=== PATIENT | male | born 1955 | race Caucasian/White ===

== ENCOUNTER → 2018-01-21 | Outpatient (CLI) | payer BC ==
[2018-01-21 13:14] LABS: HCT 48.3 % (39.0-53.0); HGB 15.4 gm/dL (13.0-17.5); MCH 29.5 pg (25.0-35.0); MCHC 31.9 g/dL (31.0-37.0); MCV 92.4 fL (80.0-100.0); Mean Platelet Volume 6.9; Platelet Count 203 k/uL (150-450); RBC 5.23 m/uL (4.30-5.90); RDW 13.5 % (11.5-15.5); WBC 7.4 k/uL (3.8-10.6)
[2018-01-21 13:19] LABS: Albumin 4.1 g/dL (3.5-5.0); Potassium 4.5 mmol/L (3.5-5.1); Total Bilirubin 0.5 mg/dL (0.2-1.3)
[2018-01-21 13:32] LABS: Partial Thromboplastin Time 25.3 sec (22.0-30.0); Prothrombin Time 10.7 sec (9.0-12.0)
[2018-01-21 14:40] LABS: Appearance,Urine Clear (Clear); Bilirubin,Urine Negative (Negative); Blood,Urine Small (Negative); Color,Urine Yellow; Glucose,Urine (UA) Negative (Negative); Ketones,Urine Negative (Negative); Leukocyte Esterase,Urine Negative (Negative); Nitrite,Urine Negative (Negative); Protein,Urine Negative (Negative); RBC,Urine 2 /hpf (0-5); Specific Gravity,Urine 1.016 (1.001-1.035); Urobilinogen,Urine <2.0 mg/dL (<2.0)
== END | disposition home or self-care (01) ==
LOC: LABPAT 12:45
PROVIDERS: ATTEND Orthopaedic Surgery
DX: Z01.812 Encounter for preprocedural laboratory examination (principal)
CPT/HCPCS: 36415; 80053; 81001; 85027; 85610; 85730; 87070

== ENCOUNTER 2018-02-19 05:46 | Inpatient (IN) | payer BC ==
[2018-02-13 15:13] VITALS: BMI 37.7
[~2018-02-19 05:46] MED LIST: ACETAMINOPHEN TAB 500 MG TAB PO ONE; DEXAMETHASONE SOD PHOSPHATE 10 MG/ML 1 ML VIAL IV ONE; HYDROmorphone 0.5 MG/0.5 ML SYRINGE IVP PRN; LIDOCAINE 1% 20 ML VIAL (10MG/ML) FOR IV START INTRADERMA PRN; MELOXICAM 7.5 MG TAB PO ONE; MIDAZOLAM (PF) 2 MG/2 ML VIAL IV PRN; ONDANSETRON 4 MG/2 ML VIAL IVP ONE; SCOPOLAMINE 1.5MG/72HR PATCH TRANSDERM ONE; TRANEXAMIC ACID 1,000 MG in SODIUM CHLORIDE 0.9% 50 ML IVPB ONE
[2018-02-19] MEDS ORDERED: LIDOCAINE 1% 20 ML VIAL (10MG/ML) FOR IV START INTRADERMA ONE (06:10)
[2018-02-19] MEDS ORDERED: LACTATED RINGERS 1,000 ML IV ONE ×2 (06:26→08:09)
[2018-02-19] MEDS ORDERED: fentaNYL (PF) 50 MCG/ML 2 ML AMP IVP ONE ×2 (06:30)
[2018-02-19] MEDS ORDERED: MIDAZOLAM 2 MG/2 ML VIAL IVP ONE (06:30)
[2018-02-19] MEDS ORDERED: fentaNYL (PF) 50 MCG/ML 2 ML AMP IV ONE (06:40)
[2018-02-19] MEDS ORDERED: MIDAZOLAM 2 MG/2 ML VIAL IV ONE (06:40)
[2018-02-19] MEDS ORDERED: ceFAZolin 3,000 MG in SODIUM CHLORIDE 0.9% IRRIGATIO 3,000 ML IRRIGATION ONE (06:58)
[2018-02-19] MEDS ORDERED: NALOXONE 0.4 MG/ML 1 ML VIAL IV PRN (06:58)
[2018-02-19] MEDS ORDERED: NA PHOS,M-B/NA PHOS,DI-BA 133 ML ENEMA RECTAL PRN (06:58)
[2018-02-19] MEDS ORDERED: DIAZEPAM 5 MG TAB PO PRN (06:58)
[2018-02-19] MEDS ORDERED: hydrOXYzine PAMOATE 25 MG CAP PO PRN (06:58)
[2018-02-19] MEDS ORDERED: HYDROcodone/APAP 5-325MG 1 EACH TAB PO PRN (06:58)
[2018-02-19] MEDS ORDERED: MIDAZOLAM 2 MG/2 ML VIAL ONE (06:58)
[2018-02-19] MEDS ORDERED: BISACODYL 10 MG SUPP RECTAL PRN (06:58)
[2018-02-19] MEDS ORDERED: HYDROmorphone 0.5 MG/0.5 ML SYRINGE IVP PRN ×2 (06:58)
[2018-02-19] MEDS ORDERED: ePHEDrine SULFATE/0.9% NACL/PF 50 MG/5 ML SYRINGE IV ONE (06:58)
[2018-02-19] MEDS ORDERED: ONDANSETRON 4 MG/2 ML VIAL IVP PRN (06:58)
[2018-02-19] MEDS ORDERED: GLYCOPYRROLATE 0.2 MG/ML 2 ML VIAL ONE (06:58)
[2018-02-19] MEDS ORDERED: MAGNESIUM HYDROXIDE 2,400 MG/10 ML CUP PO PRN (06:58)
[2018-02-19] MEDS ORDERED: HYDROmorphone 1 MG/ML 1 ML SYRINGE IVP PRN (06:58)
[2018-02-19] MEDS ORDERED: KETAMINE 10 MG/ML 20 ML VIAL ONE (06:58)
[2018-02-19] MEDS ORDERED: PROPOFOL 10 MG/ML 20 ML VIAL IV ONE (06:58)
[2018-02-19] MEDS: ROPIVACAINE 246.25 MG, EPINEPHrine 0.5 MG, KETOROLAC 30 MG, cloNIDine HCL/PF 80 MCG, WA... MISCELLANE ONE ×10 (07:28→08:17)
--- NOTE | 2018-02-19 08:35 | P.OP ---
Date of Procedure: 02/19/18 Preoperative Diagnosis: Severe osteoarthritis right knee Postoperative Diagnosis: Severe osteoarthritis right knee Procedure(s) Performed: Right total knee arthroplasty Implants: [employer] Journey II CR Oxinium cruciate retaining femoral component size 8, right [employer] Journey right nonporous tibial baseplate size 8 [employer] Journey II, XLPE Deep Dished articular insert, size 9 mm, Size 7- 8 right [employer] Journey BCS resurfacing oval patellar component, 35 mm All components were cemented using Palacos R bone cement.. The articulation is Oxinium on polyethylene. Anesthesia: spinal Surgeon: Doc Gil Brewery Pumper #1: Estela Zhang Estimated Blood Loss (ml): 25 Pathology: other Condition: stable Disposition: PACU Indications for Procedure: After failure of conservative treatment we discussed the surgical and nonsurgical treatment options at length. Patient wishes to proceed with a total knee arthroplasty. Complications specific to this procedure were discussed at length, including but not limited to infection, bleeding, stiffness , and nerve injury. Patient is aware of all these complications and informed consent was obtained Operative Findings: The operative findings are consistent with severe osteoarthritis of the right knee with a valgus deformity. Description of Procedure: Patient was seen in the preoperative area consent was reviewed and operative site was marked with a skin marker. An adductor canal pain catheter was placed by anesthesia in the preoperative area. Patient was then brought to the operating room and given preoperative antibiotics intravenously. A spinal anesthetic was administered by the anesthesia department. A tourniquet was placed on the upper thigh and the lower extremity was prepped and draped in usual sterile fashion. A gram of transexamic acid was given. A universal timeout was then performed which confirmed the patient's name, surgical site, ALLERGIES, and consent. The lower extremity was then exsanguinated and tourniquet was inflated to 250 mmHg. A standard and anterior midline approach to the knee was performed. The skin and subcutaneous tissue was dissected down to the patellar tendon. A medial parapatellar arthrotomy was then performed. The knee was then extended, the patellar was everted, and the knee was again flexed. Anterior horns of both menisci were excised, and a release was performed to the posterior medial aspect of the knee. On gross visual inspection, there was complete loss of articular cartilage in the medial and patellofemoral joint spaces. There was also significant cartilage damage in the lateral compartment. There were multiple periarticular osteophytes which were then removed with a Ronguer. The femoral canal was then opened with the appropriate drill, and the intramedullary femoral cutting guide was then placed and set for 5 of valgus. The distal femoral cutting block was then pinned in place, and the distal femur was then cut. The cutting block was then removed and the cut was checked for flatness. Next, the sizing guide was then placed and set for 3 external rotation based off of the epicondylar axis and Whitesides line. After the femur was sized, the appropriate 4-in-1 cutting block was then pinned in place. The anterior condyles were cut without notching. The posterior and chamfer cuts were performed while protecting the collateral ligaments. The cutting block was then removed, and the femoral canal was plugged with autologous bone. Attention was then directed to the tibia. The remaining ACL was removed with a Ronguer, and the tibia was then gently subluxed forward with a large bent knee retractor. Any remaining menisci was excised. The posterior lateral corner was cauterized in order to cauterize the lateral geniculate artery. The extra medullary tibial cutting guide was then placed, set for the appropriate rotation , slope, and depth of resection. The proximal tibia cutting guide was then pinned in place. Proximal tibia was then cut and sized. Next trials were then placed with the appropriate-sized insert. The knee was able to fully extend and flex to 130 and was stable throughout all range of motion. The knee was then extended, patella everted. Patella was then measured, and then using an osteotomy guide, the patella was cut at the appropriate level. The patella was then measured and drilled and the patella trial was then placed. The knee was then taken through range of motion with the patella trial and the patella tracked normally. The knee was then extended patella trial was then removed and the patella was everted. Knee was then flexed and lug holes were drilled through the femoral trial and the femoral trial was then removed. The tibial was then exposed, and the tibial broach guide was then pinned in place after it was set for the appropriate rotation to allow for the most coverage without overhang. The tibia was then reamed and broached. The cut surfaces of bone were then irrigated with pulsatile lavage. The posterior structures were injected with the ropivacaine solution. The knee was also irrigated with Irrisept solution. The components were then opened, the cement was mixed, and the components were then cemented in place. The cement was allowed to harden with the knee in full extension. While the cement was hardening, the remaining soft tissues were then injected with a ropivacaine solution, which consisted of 246.25 mg of ropivacaine, 0.5 mg of epinephrine, 30 mg of Toradol, 80 g of clonidine, and 48.45 mL of sterile water, for a total of 100 mL of fluid injected. After the cemented hardened. The tourniquet was released, and hemostasis was obtained. A second gram of transexamic acid was given. The knee was again irrigated. The knee was again taken through range of motion and found to be stable throughout all range of motion of 0-130 , and the patella tracked normally. The fascia was then closed with #2 strata fix suture. The subcutaneous tissue was closed with 3-0 Vicryl and 3-0 strata fix. Dermabond glue was used for the skin and placed with the knee in flexion. The patient was placed in a sterile silver dressing. Patient was then transferred to recovery room in stable condition. The resident assistant cna GAURAV Cervantes was required due the complexity surgery and the need for a skilled pharmacy technician assistant. She assisted in positioning, draping, retraction, and closure of the wound.
[2018-02-19] MEDS ORDERED: ROPIVACAINE 1,100 MG, SODIUM CHLORIDE 0.9% 500 ML 330 ML MISCELLANE PRN ×2 (09:01)
--- NOTE | 2018-02-19 09:27 | XR ---
EXAMINATION TYPE: XR knee limited RT DATE OF EXAM: 02/19/2018 CLINICAL HISTORY: Right knee pain and arthritis status post total knee replacement. TECHNIQUE: Portable AP and crosstable lateral views of the right knee are obtained immediately posto peratively. COMPARISON: None FINDINGS: Metallic hardware from total right knee arthroplasty is seen and appears satisfactory in a lignment and position. There is evidence of recent surgery with diffuse subcutaneous gas and soft ti ssue swelling noted. IMPRESSION: METALLIC HARDWARE FROM TOTAL RIGHT KNEE ARTHROPLASTY IS SATISFACTORY IN ALIGNMENT.
--- NOTE | 2018-02-19 09:29 | P.ONQ ---
Anesthesiology Proc Note - PNB - Peripheral Nerve Block Performed Right Adductor Canal Infusion Time Out Performed: Yes Procedure Start Time: 06:28 Indication: Acute Post-Operative Pain, Analgesia Specifically requested for management of pain by DrCj: Doc Gil Sedation Type: Sedate with meaningful contact maintained Preparation: Sterile Prep Position: Supine Catheter Depth at Skin (cm): 8 Catheter: Indwelling Needle Types: Other (see comment) (pajunk) Needle Size: 100mm (4") Needle Gauge: 18 Technique: Ultrasound Injectate: 0.5% Ropivacaine (see comment for volume) (20cc) Blood Aspirated: No Pain Paresthesia on Injection Noted: No Resistance on Injection: Normal Events: Uneventful and Well Tolerated
[2018-02-19] MEDS: LACTATED RINGERS 1,000 ML IV SCH (11:36)
[2018-02-19] MEDS: SODIUM CHLORIDE 0.9% 1,000 ML IV SCH ×2 (11:37→20:41)
--- NOTE | 2018-02-19 16:36 | CONS ---
CONSULTATION DATE OF CONSULTATION: 02/19/2018 REASON FOR CONSULTATION: Medical management requested by Dr. Gil. CONSULTATION: This is a very pleasant 62-year-old patient of Dr. Barton. Patient has undergone right total knee arthroplasty. Post procedure some pain is present. No nausea or vomiting. No chest pain. No shortness of breath. Denies any cardiac history. Patient's arthritis has been getting worse. The patient was also having some arthritic pain in the right ankle. Pain was worse with activity, better with rest. He finally decided to proceed with the surgery. Patient otherwise is in good health. REVIEW OF SYSTEMS: CONSTITUTIONAL: None. HEENT: None. RESPIRATORY: None. CARDIOVASCULAR: None. GASTROINTESTINAL: None. GENITOURINARY: None. MUSCULOSKELETAL: As above. DERMATOLOGICAL: None. HEMATOLOGICAL: None. LYMPHATICS: None. PSYCHIATRY: None. NEUROLOGICAL: None. PAST MEDICAL HISTORY: 1. Osteoarthritis. 2. Hypercholesterolemia. PAST SURGICAL HISTORY: Right knee surgery. 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 . Does not smoke or drink alcohol. FAMILY HISTORY: Cancer. HOME MEDICATIONS: Advil. ALLERGIES: NONE. PHYSICAL EXAMINATION: On examination, temperature 98.4, pulse 89, respiration 12, blood pressure 142/72, pulse ox 95% on room air. GENERAL APPEARANCE: Well built; BMI 37.7. Sitting up, comfortable. EYES: Pupils equal. Conjunctivae normal. HEENT: External appearance of nose and ears normal. Oral cavity normal. NECK: JVD not raised. Mass not palpable. RESPIRATORY: Effort normal. Lungs are clear. CARDIOVASCULAR: First and second sounds normal. No edema. ABDOMEN: Soft, non-tender. Liver and spleen not palpable. LYMPHATIC: No lymph node palpable in neck or axillae. PSYCHIATRY: Alert and oriented x3. Mood and affect normal. MUSCULOSKELETAL: Dressing over the right knee. INVESTIGATIONS: Blood work from 01/21/2018 shows a white count of 7.4, hemoglobin 15.4, potassium 4.5. BUN and creatinine are normal. ASSESSMENT: 1. Right total knee arthroplasty. 2. Obesity; body mass index 37.7. 3. Possible arthritis of the right ankle. 4. Primary osteoarthritis. 5. Hypercholesterolemia; not taking any medications. PLAN: Patient is stable post procedure. He is on aspirin for DVT prophylaxis. Pain control is in place. Getting IV fluids. Care was discussed with the patient and his at the bedside. Questions were answered. Patient should follow up with his doctor for weight loss measures. Patient also has been told he has high cholesterol. He has been trying to lose weight for the same. Currently he is not taking any medications. I told him to consider taking medication until his weight actually comes down. All of his questions were answered Thank you, Dr. Gil. ERIK / JAC: [id number] /
[2018-02-19 20:24] VITALS: RESP 16; TEMP 98.3
[2018-02-19] MEDS: ASPIRIN 325 MG TAB PO SCH (20:32)
[2018-02-19] MEDS ORDERED: SENNOSIDES-DOCUSATE SODIUM 1 EACH TAB PO SCH (21:00)
[2018-02-20] MEDS: LACTATED RINGERS 1,000 ML IV SCH (01:23)
[2018-02-20] MEDS: HYDROcodone/APAP 5-325MG 1 EACH TAB PO PRN ×2 (05:14→12:06)
--- NOTE | 2018-02-20 06:56 | P.PN ---
Progress Note - Text Progress Note Date: 02/20/18 Postoperative day # 1 status post right total knee arthroplasty, under spinal anesthesia, and adductor canal catheter placed for postoperative analgesia, currently at ropivacaine 0.2% 8 mL per hour and continuous infusion, visual analogue scale is 4/10, patient using oral pain medication for breakthrough pain. Assessment and plan= Acute postoperative pain, adductor canal catheter for pain control, we'll continue the same management.
[2018-02-20 08:07] VITALS: BP 116/71; PULSE 83
[2018-02-20 08:39] LABS: Basophils % (A) 0 %; Eosinophils % (A) 0 %; HCT 39.8 % (39.0-53.0); HGB 13.2 gm/dL (13.0-17.5); Lymphocytes # (A) 1.4 k/uL (1.0-4.8); Lymphocytes % (A) 18 %; MCH 30.6 pg (25.0-35.0); MCHC 33.1 g/dL (31.0-37.0); MCV 92.6 fL (80.0-100.0); Mean Platelet Volume 7.6; Monocytes # (A) 0.6 k/uL (0-1.0); Monocytes % (A) 7 %; Neutrophils # (A) 5.7 k/uL (1.3-7.7); Neutrophils % (A) 74 %; Platelet Count 169 k/uL (150-450); RDW 13.6 % (11.5-15.5); WBC 7.7 k/uL (3.8-10.6)
--- NOTE | 2018-02-20 08:59 | P.DS ---
Providers Date of admission: 02/19/18 05:46 Expected date of discharge: 02/20/18 Attending physician: Doc Gil Consults: 02/19/18 06:58 Consult Physician Routine Consulting Provider: Anthony Barton Consult Reason/Comments: medical management Do you want consulting provider notified?: Yes 02/19/18 10:56 Consult Physician Routine Consulting Provider: Aries Townsend Consult Reason/Comments: Medical Mangement Do you want consulting provider notified?: Yes Primary care physician: Anthony Barton - Discharge Diagnosis(es) (1) Primary osteoarthritis of right knee Current Visit: Yes Status: Acute (2) S/P total knee arthroplasty Current Visit: Yes Status: Acute Hospital Course: This is a 62-year-old female with known history of degenerative arthritis of the right knee. The patient presents for evaluation. After discussion and consideration patient elects to proceed with total knee arthroplasty. The patient is seen preoperatively by Dr. Gil and medically cleared for surgery by their primary care physician. Patient is admitted to [facility] on 02/19/2018 for total knee arthroplasty. The procedures performed without complication or sequelae. The patient is doing well postoperatively. Labs and vital signs are stable on day of discharge. On day of discharge patient's knee incision is healing well. There is minimal erythema. There is no drainage noted at this time. There is minimal soft tissue swelling to the knee. Patient has full foot and ankle motion without difficulty or pain. Neurovascular status to the right lower extremity is intact. Patient is discharged home in good condition. Please see med rec for accurate list of home medications. Plan - Discharge Summary Discharge Rx Participant: Yes New Discharge Prescriptions: New HYDROcodone/APAP 5-325MG [Arcadia 5-325] 1 - 2 tab PO Q4-6H PRN #84 tab PRN Reason: Pain Sennosides [Senokot] 1 tab PO BID #60 tablet Aspirin 325 mg PO BID #60 tab No Action Ibuprofen [Advil] 200 - 400 mg PO Q6HR PRN PRN Reason: Pain Discharge Medication List Ibuprofen [Advil] 200 - 400 mg PO Q6HR PRN 02/13/18 [History] Aspirin 325 mg PO BID #60 tab 02/20/18 [Rx] HYDROcodone/APAP 5-325MG [Arcadia 5-325] 1 - 2 tab PO Q4-6H PRN #84 tab 01/16/19 [ Rx] Sennosides [Senokot] 1 tab PO BID #60 tablet 02/20/18 [Rx] Follow up Appointment(s)/Referral(s): Doc Gil DO [Doctor of Osteopathic Medicine] - 2 Weeks Ambulatory/Diagnostic Orders: Continuous Passive Motion (CPM) Machine [DME.AMB1] Time Frame: 3 Weeks, Location : None Selected Activity/Diet/Wound Care/Special Instructions: Weightbearing as tolerated with a walker. CPM 5-6h daily. Leave dressing intact. May be removed by home care nurse in 10 days. May shower with dressing on. Please follow up with [facility] and call with any questions or concerns, . Discharge Disposition: HOME WITH HOME HEALTH SERVICES
[2018-02-20] MEDS ORDERED: MELOXICAM 7.5 MG TAB PO SCH (09:00)
[2018-02-20] MEDS: ASPIRIN 325 MG TAB PO SCH (09:27)
== END 2018-02-20 12:21 | disposition home health service (06) | DRG 470 ==
LOC: 2ORWHC 05:46 → 4SSUR 10:51
PROVIDERS: ADMIT Orthopaedic Surgery; ATTEND Orthopaedic Surgery
PROC: 0SRC069 Replacement of Right Knee Joint with Oxidized Zirconium on Polyethylene Synthetic Substitute, Cemented, Open Approach (ICD-10-PCS; principal; 2018-02-19 07:00)
DX: M17.11 Unilateral primary osteoarthritis, right knee (principal); E66.9 Obesity, unspecified; E78.00 Pure hypercholesterolemia, unspecified; M21.00 Valgus deformity, not elsewhere classified, unspecified site; M19.071 Primary osteoarthritis, right ankle and foot; H91.90 Unspecified hearing loss, unspecified ear; Z68.37 Body mass index [BMI] 37.0-37.9, adult; Z80.9 Family history of malignant neoplasm, unspecified
CPT/HCPCS: 85025; 88300

== ENCOUNTER 2021-01-21 12:16 | Inpatient (IN) | payer BC ==
--- NOTE | 2021-01-21 15:41 | ED ---
General Adult HPI - General Chief complaint: Extremity Problem,Nontraumatic Stated complaint: Poss blood clot/sent by pcp Time Seen by Provider: 01/21/21 15:33 Source: patient Mode of arrival: ambulatory Limitations: no limitations - History of Present Illness Initial comments: Patient presents to the ED with his for evaluation. Patient reports having abdominal distention, bilateral lower extremity edema and dyspnea for the past week or so. Patient states that he had a cough and congestion when his symptoms began, but his cough and congestion have since resolved. Patient states that he saw his primary care provider for these symptoms yesterday, and he states that he had a negative Covid test done at that time. Patient states that he was called by his PCP today and told to come to the ER to be ruled out for "blood clots" given that he had an elevated d-dimer level. Patient is noted to be in atrial fibrillation on the collections associate on arrival to the ED. Patient denies having any palpitations, and he denies history of atrial fibrillation. Patient denies having any pain, fever or chills, headache, focal numbness/weakness/neuro deficit, chest pain or pressure, hemoptysis, dizziness, syncope, abdominal pain, nausea/vomiting/diarrhea, constipation, bloody or melanotic stool, dysuria or urinary symptoms, decreased urine output, leg or calf pain, or any other symptoms or complaints. - Related Data Home Medications Medication Instructions Recorded Confirmed No Known Home Medications 01/21/21 01/21/21 Allergies Allergy/AdvReac Type Severity Reaction Status Date / Time No Known Allergies Allergy Verified 01/21/21 16:53 Review of Systems ROS Statement: Those systems with pertinent positive or pertinent negative responses have been documented in the HPI. ROS Other: All systems not noted in ROS Statement are negative. Past Medical History Past Medical History: Osteoarthritis (OA) History of Any Multi-Drug Resistant Organisms: None Reported Past Surgical History: Orthopedic Surgery Additional Past Surgical History / Comment(s): right knee surg. Past Anesthesia/Blood Transfusion Reactions: No Reported Reaction Past Psychological History: No Psychological Hx Reported Smoking Status: Never smoker Past Alcohol Use History: None Reported Past Drug Use History: None Reported - Past Family History Father Family Medical History: Cancer General Exam Limitations: no limitations General appearance: alert, in no apparent distress Head exam: Present: atraumatic, normocephalic Eye exam: Present: normal appearance, PERRL, EOMI ENT exam: Present: mucous membranes moist Neck exam: Present: other (Trachea is in midline) Respiratory exam: Present: normal lung sounds bilaterally. Absent: respiratory distress, wheezes, rales, rhonchi, stridor Cardiovascular Exam: Present: tachycardia, irregular rhythm, normal heart sounds, other (Normal radial pulses bilaterally) GI/Abdominal exam: Present: soft, distended, diminished bowel sounds, other (Obese abdomen). Absent: tenderness, guarding Extremities exam: Present: other (1+ bilateral lower extremity pitting edema; negative Homans sign bilaterally). Absent: tenderness, calf tenderness Neurological exam: Present: alert, oriented X3. Absent: motor sensory deficit Psychiatric exam: Present: normal affect, normal mood Skin exam: Present: warm, dry, intact, normal color Course Vital Signs 01/21/21 01/21/21 13:40 18:27 Temperature 97.6 F Pulse Rate 64 112 H Respiratory 16 18 Rate Blood Pressure 147/70 106/69 O2 Sat by Pulse 96 96 Oximetry - Reevaluation(s) Reevaluation #1: 01/21/21 18:04 Case, H&P, test results thus far and ED management thus far were discussed with Dr. Vail who is currently in the ED. He accepts hospital admission. He recommends ordering a chest x-ray and a send out Covid test as well. He has no further recommendations at this time. 01/21/21 18:13 Patient and are aware the patient's test results, and they both agree with hospital admission at this time. Patient's atrial fibrillation has been intermittent while in the ED. Patient's heart rate has currently improved. Patient denies development of any new symptoms while in the ED, and he remains alert and breathing comfortably. EKG Findings - EKG Comments: EKG Findings:: Atrial fibrillation with rapid ventricular response, ventricular rate of 171 bpm, normal QRS duration, normal QT interval, nonspecific ST and T- wave abnormality, normal axis Medical Decision Making - Medical Decision Making Given the patient's findings, I suspect that the patient's reported abdominal distention and lower extremity edema are likely secondary to CHF, which I suspect is likely secondary to paroxysmal atrial fibrillation. Patient has been treated with IV Lasix and IV diltiazem in the ED. Dr. Vail has accepted hospital admission. There is no evidence of thrombus/embolus on any of the patient's imaging studies. Patient and both agree with hospital admission at this time. - Lab Data Result diagrams: 01/21/21 15:58 01/21/21 15:58 Lab Results 01/21/21 01/21/21 01/21/21 Range/Units 15:58 15:58 15:58 WBC 7.2 (3.8-10.6) k/uL RBC 5.00 (4.30-5.90) m/uL Hgb 15.8 (13.0-17.5) gm/dL Hct 47.4 (39.0-53.0) % MCV 94.7 (80.0-100.0) fL MCH 31.5 (25.0-35.0) pg MCHC 33.2 (31.0-37.0) g/dL RDW 13.5 (11.5-15.5) % Plt Count 187 (150-450) k/uL MPV 8.5 Neutrophils % 70 % Lymphocytes % 18 % Monocytes % 9 % Eosinophils % 1 % Basophils % 1 % Neutrophils # 5.0 (1.3-7.7) k/uL Lymphocytes # 1.3 (1.0-4.8) k/uL Monocytes # 0.6 (0-1.0) k/uL Eosinophils # 0.0 (0-0.7) k/uL Basophils # 0.0 (0-0.2) k/uL PT 11.9 (9.0-12.0) sec INR 1.1 (<1.2) APTT 23.0 (22.0-30.0) sec D-Dimer 2.31 H (<0.60) mg/L FEU Sodium 137 (137-145) mmol/L Potassium 4.4 (3.5-5.1) mmol/L Chloride 99 (98-107) mmol/L Carbon Dioxide 27 (22-30) mmol/L Anion Gap 11 mmol/L BUN 17 (9-20) mg/dL Creatinine 0.97 (0.66-1.25) mg/dL Est GFR (CKD-EPI)AfAm >90 (>60 ml/min/1.73 sqM) Est GFR (CKD-EPI)NonAf 83 (>60 ml/min/1.73 sqM) Glucose 126 H (74-99) mg/dL Calcium 8.6 (8.4-10.2) mg/dL Magnesium 2.2 (1.6-2.3) mg/dL Total Bilirubin 0.8 (0.2-1.3) mg/dL AST 113 H (17-59) U/L ALT 243 H (4-49) U/L Alkaline Phosphatase 63 (38-126) U/L Troponin I (0.000-0.034) ng/mL NT-Pro-B Natriuret Pep pg/mL Total Protein 6.6 (6.3-8.2) g/dL Albumin 3.8 (3.5-5.0) g/dL TSH 1.770 (0.465-4.680) mIU/L Coronavirus (PCR) (Not Detectd) 01/21/21 01/21/21 01/21/21 Range/Units 15:58 15:58 16:05 WBC (3.8-10.6) k/uL RBC (4.30-5.90) m/uL Hgb (13.0-17.5) gm/dL Hct (39.0-53.0) % MCV (80.0-100.0) fL MCH (25.0-35.0) pg MCHC (31.0-37.0) g/dL RDW (11.5-15.5) % Plt Count (150-450) k/uL MPV Neutrophils % % Lymphocytes % % Monocytes % % Eosinophils % % Basophils % % Neutrophils # (1.3-7.7) k/uL Lymphocytes # (1.0-4.8) k/uL Monocytes # (0-1.0) k/uL Eosinophils # (0-0.7) k/uL Basophils # (0-0.2) k/uL PT (9.0-12.0) sec INR (<1.2) APTT (22.0-30.0) sec D-Dimer (<0.60) mg/L FEU Sodium (137-145) mmol/L Potassium (3.5-5.1) mmol/L Chloride (98-107) mmol/L Carbon Dioxide (22-30) mmol/L Anion Gap mmol/L BUN (9-20) mg/dL Creatinine (0.66-1.25) mg/dL Est GFR (CKD-EPI)AfAm (>60 ml/min/1.73 sqM) Est GFR (CKD-EPI)NonAf (>60 ml/min/1.73 sqM) Glucose (74-99) mg/dL Calcium (8.4-10.2) mg/dL Magnesium (1.6-2.3) mg/dL Total Bilirubin (0.2-1.3) mg/dL AST (17-59) U/L ALT (4-49) U/L Alkaline Phosphatase (38-126) U/L Troponin I <0.012 (0.000-0.034) ng/mL NT-Pro-B Natriuret Pep 1070 pg/mL Total Protein (6.3-8.2) g/dL Albumin (3.5-5.0) g/dL TSH (0.465-4.680) mIU/L Coronavirus (PCR) Not Detected (Not Detectd) - Radiology Data CT chest angiogram with IV contrast: 1. No evidence for acute intraluminal process. 2. Nonspecific fluid within the paracolic gutters and maybe secondary to findings of congestive heart failure. 3. Colonic diverticulosis. 4. Hepatic steatosis. CT abdomen/pelvis with IV contrast: 1. No evidence of pulmonary embolism. 2. Pulmonary vascular congestion, bilateral pleural effusions and cardiomegaly concerning for acute exacerbation of congestive heart failure correlate with serum BNP. 3. Ascending thoracic aorta ectasia measuring 4.6 cm. Bilateral lower extremity venous duplex ultrasounds: No evidence for DVT of the lower extremities. Grayscale, color Doppler, spectral Doppler imaging performed of the deep veins of the lower extremity. There is normal flow, compressibility, vascular waveforms. Chest x-ray: Congestive heart failure changes with cardiomegaly, pulmonary vascular congestion and bilateral pleural effusions. Correlate with BNP. Disposition Clinical Impression: Atrial fibrillation with rapid ventricular response, CHF (congestive heart failure) Disposition: ADMITTED IP TO THIS HOSP Condition: Stable Is patient prescribed a controlled substance at d/c from ED?: No Time of Disposition: 18:08
[2021-01-21] MEDS ORDERED: DILTIAZEM 5 MG/ML 5 ML VIAL IVP STA (16:03)
[2021-01-21 16:25] LABS: ALT 243 U/L (4-49); AST 113 U/L (17-59); African American GFR (CKD) >90 (>60 ml/min/1.73 sqM); Albumin 3.8 g/dL (3.5-5.0); Alkaline Phosphatase 63 U/L (38-126); Anion Gap 11 mmol/L; Blood Urea Nitrogen 17 mg/dL (9-20); Calcium 8.6 mg/dL (8.4-10.2); Carbon Dioxide 27 mmol/L (22-30); Chloride 99 mmol/L (98-107); Glucose 126 mg/dL (74-99); Magnesium 2.2 mg/dL (1.6-2.3); Non-African American GFR(CKD) 83 (>60 ml/min/1.73 sqM); Potassium 4.4 mmol/L (3.5-5.1); Sodium 137 mmol/L (137-145); Total Bilirubin 0.8 mg/dL (0.2-1.3); Total Protein 6.6 g/dL (6.3-8.2)
[2021-01-21 16:27] LABS: INR 1.1 (<1.2); Prothrombin Time 11.9 sec (9.0-12.0)
[2021-01-21 16:32] LABS: Basophils % (A) 1 %; Eosinophils % (A) 1 %; HCT 47.4 % (39.0-53.0); HGB 15.8 gm/dL (13.0-17.5); Lymphocytes # (A) 1.3 k/uL (1.0-4.8); Lymphocytes % (A) 18 %; MCH 31.5 pg (25.0-35.0); MCHC 33.2 g/dL (31.0-37.0); MCV 94.7 fL (80.0-100.0); Mean Platelet Volume 8.5; Monocytes # (A) 0.6 k/uL (0-1.0); Monocytes % (A) 9 %; Neutrophils % (A) 70 %; Platelet Count 187 k/uL (150-450); RDW 13.5 % (11.5-15.5); WBC 7.2 k/uL (3.8-10.6)
--- NOTE | 2021-01-21 16:44 | CT ---
EXAMINATION TYPE: CT chest angio for PE DATE OF EXAM: 01/21/2021 COMPARISON: None HISTORY: elevated dimer, dyspnea CT DLP: 931.9 mGycm Automated exposure control for dose reduction was used. CONTRAST: CT Chest for pulmonary embolism performed with with IV Contrast, patient injected with 100 mL of Isov ue 370. FINDINGS: Pulmonary Artery: There is no evidence for a filling defect within the pulmonary vasculature to sugge st acute pulmonary embolism. The pulmonary artery is of normal size. Lungs/Pleura: No evidence of focal consolidation or pneumothorax. Small bilateral pleural effusions. There is associated subsegmental atelectasis interlobular septal thickening noted. Airway: Patent and grossly unremarkable. Heart: Enlarged for size. Vasculature: Ascending thoracic aorta dilation up to 4.6 cm Mediastinum: No gross evidence of adenopathy. Musculoskeletal: Moderate degenerative disc disease changes are present throughout the thoracolumbar spine. Soft Tissues: Unremarkable. Lower neck: No significant findings. Upper Abdomen: No significant findings. IMPRESSION: 1. No evidence of pulmonary embolism. 2. Pulmonary vascular congestion, bilateral pleural effusions and cardiomegaly concerning for acute e xacerbation of congestive heart failure correlate with serum BNP. 3. Ascending thoracic aorta ectasia measuring 4.6 cm.
--- NOTE | 2021-01-21 17:37 | CT ---
EXAMINATION TYPE: CT abdomen pelvis w con CT DLP: 3504.4 mGycm, Automated exposure control for dose reduction was used. DATE OF EXAM: 01/21/2021 4:34 PM COMPARISON: None . CLINICAL INDICATION:Male, 65 years old with history of abdominal distention, lower extremity edema; a bdominal distention, lower extremity edema TECHNIQUE: Standard CT of the abdomen and pelvis following the administration of 100 cc of Isovue 3 00 IV contrast material. Coronal and sagittal reformats were performed. FINDINGS: LOWER CHEST: Please see dedicated CT chest for findings ABDOMEN LIVER: Focal fatty infiltration adjacent to the falciform ligament in segment IVb GALLBLADDER AND BILE DUCTS: Unremarkable. PANCREAS: Unremarkable. SPLEEN: Unremarkable. ADRENAL GLANDS: Unremarkable. KIDNEYS AND URETERS: A renal cyst measuring up to 5.4 cm. No evidence of hydronephrosis or renal calc ulus. The ureters are unremarkable. PELVIS BLADDER: Unremarkable REPRODUCTIVE: Unremarkable. ABDOMEN & PELVIS STOMACH AND BOWEL: Stomach and duodenum are unremarkable. Scattered diverticula are noted throughout the colon. No evidence of bowel obstruction. Appendix is visualized and unremarkable. PERITONEUM: No evidence of pneumoperitoneum. Trace amount of fluid/fat stranding in the paracolic gut ters inferiorly VASCULATURE: Mild atherosclerotic calcifications are present throughout the abdominal aorta and its b ranches. MUSCULOSKELETAL: Mild disc degeneration changes are present throughout the thoracolumbar spine. LYMPH NODES: No gross evidence for lymphadenopathy. SOFT TISSUE/ABDOMINAL WALL: Unremarkable IMPRESSION: 1. No evidence for acute intraluminal process. 2. Nonspecific fluid within the paracolic gutters and may a be secondary to findings of congestive he art failure. 3. Colonic diverticulosis. 4. Hepatic steatosis or
[2021-01-21] MEDS ORDERED: FUROSEMIDE 10 MG/ML 4 ML VIAL IV STA (18:08)
--- NOTE | 2021-01-21 18:35 | US ---
EXAMINATION TYPE: US venous doppler duplex LE BI DATE OF EXAM: 01/21/2021 6:17 PM COMPARISON: NONE CLINICAL HISTORY: bilateral lower extremity edema, elevated d-dimer. SIDE PERFORMED: Bilateral TECHNIQUE: The lower extremity deep venous system is examined utilizing real time linear array sonog bhaskar with graded compression, doppler sonography and color-flow sonography. VESSELS IMAGED: Common Femoral Vein Deep Femoral Vein Greater Saphenous Vein * Femoral Vein Popliteal Vein Small Saphenous Vein * Proximal Calf Veins (* superficial vessels) Patient of large body habitus with severe leg swelling, technically difficult. Right Leg: Appears negative for DVT Left Leg: Appears negative for DVT IMPRESSION: No evidence for DVT of the lower extremities. Grayscale, color doppler, spectral doppler imaging performed of the deep veins of the lower extremities. There is normal flow, compressibility , vascular waveforms.
--- NOTE | 2021-01-21 18:50 | XR ---
EXAMINATION TYPE: XR chest 2V DATE OF EXAM: 01/21/2021 6:42 PM COMPARISON:CT chest from same date CLINICAL INDICATION:Male, 65 years old with history of dyspnea; TECHNIQUE: Frontal and lateral views of the chest. FINDINGS: Lungs/Pleura: No evidence of focal consolidation or pneumothorax. Blunting of the costophrenic angles is present. Pulmonary vascularity: Pulmonary vascular congestion. Heart/mediastinum: Cardiomediastinal silhouette is enlarged and stable. Musculoskeletal: No acute osseous pathology. IMPRESSION: Congestive heart failure changes with cardiomegaly, pulmonary vascular congestion and bilateral pleur al effusions. Correlate with BNP.
[2021-01-21] MEDS ORDERED: TEMAZEPAM 15 MG CAP PO PRN (19:04)
[2021-01-21] MEDS ORDERED: ALPRAZolam 0.25 MG TAB PO PRN (19:04)
[2021-01-21] MEDS ORDERED: ACETAMINOPHEN TAB 500 MG TAB PO PRN (19:07)
[2021-01-21] MEDS ORDERED: ENOXAPARIN 40 MG/0.4 ML SYRINGE SQ SCH (19:15)
[2021-01-21 19:57] LABS: Appearance,Urine Clear (Clear); Bilirubin,Urine Negative (Negative); Blood,Urine Negative (Negative); Color,Urine Colorless; Glucose,Urine (UA) Negative (Negative); Ketones,Urine Negative (Negative); Leukocyte Esterase,Urine Negative (Negative); Nitrite,Urine Negative (Negative); PH, Urine 6.5 (5.0-8.0); Protein,Urine Negative (Negative); Specific Gravity,Urine 1.007 (1.001-1.035); Urobilinogen,Urine <2.0 mg/dL (<2.0)
--- NOTE | 2021-01-21 20:49 | HP ---
HISTORY AND PHYSICAL DATE OF SERVICE: 01/21/2021 CHIEF COMPLAINTS: Lower extremity edema and as well as some shortness of breath. HISTORY OF PRESENT ILLNESS: This 65-year-old gentleman with a past medical history of multiple medical problems, history of DJD, history of right arm surgery, being followed by Dr. Barton in the outpatient setting, not feeling well over the past several days. The patient had progressive abdominal distention and bilateral lower leg swelling and some shortness of breath and congestion. The patient's apparently recently had a Covid infection a month ago. The patient also had started symptoms along with that and D-dimer was found to be elevated in the outpatient setting, and the patient came to the emergency room to rule out possibility of blood clots and the patient admitted for further evaluation and treatment. Evaluation showed normal pulse ox, but the patient is mildly tachycardic. Patient has significant bilateral leg edema. The labs show D-dimer elevated up to 2.31 and AST/ALT was elevated. However, a CT angio of the chest which I reviewed personally showed no evidence of pulmonary embolism and bilateral significant pleural effusions and pulmonary vascular congestion suggestive of CHF. The abdominal/pelvis CAT scan was also done which I reviewed personally showed no evidence of acute process. Nonspecific fluid was noted in the pericolic gutters and colonic diverticulosis and hepatic steatosis was noted. A chest x-ray again personally reviewed showed evidence of significant congestion as well as bilateral pleural effusion. There is no history of fever, rigors or chills. No history of headache, loss of consciousness, seizures. As mentioned earlier, the Covid 19 is negative and this is apparently patient's third or fourth Covid test according to the family. PAST MEDICAL HISTORY: History of DJD, history of orthopedic surgery, right arm surgery. MEDICATIONS: None. ALLERGIES: None. FAMILY HISTORY: History of recent Covid in the . Otherwise, cancer in the family. SOCIAL HISTORY: No history of smoking. No history of alcohol intake. REVIEW OF SYSTEMS: ENT: No diminished vision. No diminished hearing. CARDIOVASCULAR system: As mention earlier. RESPIRATION: As mentioned earlier. GI: No nausea or vomiting. : No dysuria. NERVOUS SYSTEM: No numbness or weakness. ALLERGY/IMMUNOLOGY: No asthma or hayfever. MUSCULOSKELETAL as mentioned earlier. HEMATOLOGY/ONCOLOGY: No history of anemia. ENDOCRINE: No history of diabetes or hypothyroidism. CONSTITUTIONAL: As mentioned earlier. DERMATOLOGY: Negative. RHEUMATOLOGY: Negative. PSYCHIATRIC: As mentioned earlier. DERMATOLOGY: Negative. PHYSICAL EXAMINATION: Alert and oriented x3. Pulse is 112, blood pressure is 106/69, respirations 18, temperature 97.6, pulse ox 98% on room air. HEENT is conjunctivae normal. Oral mucosa moist. NECK is jugular venous distention at the root of the neck. CARDIOVASCULAR: S1, S2 muffled. RESPIRATION: Breath sounds diminished in the bases. Bilateral scattered rhonchi and crackles. ABDOMEN: Soft, obese, nontender. No mass palpable. LEGS: Bilateral leg edema, pitting present. SKIN: No ulcer, rash or bleeding. JOINTS: No active deforming arthropathy. NERVOUS SYSTEM: Higher functions as mentioned earlier. Moves all four extremities. No focal deficits. LYMPHATICS: No lymph nodes palpable in the neck, axillae or groin. LABS: CBC within normal limits. D-dimer is 2.31. The BNP is 1070 and glucose is 126. AST/ALT is elevated 113, ALT is 243. ASSESSMENT: 1. Bilateral leg swelling and shortness of breath, possible congestive heart failure acute exacerbation. Ejection fraction unknown. A. fib with a fast ventricular rate 2. Bilateral pleural effusions of undetermined etiology. 3. Elevated D-dimer with no evidence of pulmonary embolism or deep vein thrombosis. 4. Elevated random glucose. 5. Obesity with body mass index of 42. 6. History of degenerative joint disease. RECOMMENDATIONS AND DISCUSSION: This 65-year-old gentleman who presented with multiple complex medical issues, we will monitor the patient closely, continue the current medications. The patient's BNP is elevated. I would recommend intravenous Lasix and fluid resuscitation. Cardiology consultation. Otherwise, 2D echo with Doppler and further cardiac workup. We will also send out Covid 19 and repeat labs. DVT prophylaxis. We will initiate EDWARD inhibitors and continue to monitor. Otherwise, the prognosis guarded because of multiple complex medical issues. A copy of this dictation being forwarded to Dr. Barton who is the primary physician. See orders for details. Check lipid panel also. MMODL / IJN: [id number] / MTDD
[2021-01-21 21:59] LABS: C Reactive Protein 1.5 mg/dL (<1.0)
[2021-01-21] MEDS: lisinopriL 5 MG TAB PO SCH (22:14)
[2021-01-21] MEDS: FUROSEMIDE 10 MG/ML 4 ML VIAL IV SCH (22:14)
[2021-01-21] MEDS: PANTOPRAZOLE 40 MG TABLET PO SCH (22:15)
[2021-01-21] MEDS ORDERED: DILTIAZEM 125 MG in SODIUM CHLORIDE 0.9% 100 ML IV SCH (22:45)
[2021-01-22] MEDS ORDERED: DILTIAZEM 125 MG in SODIUM CHLORIDE 0.9% 100 ML IV SCH (03:30)
[2021-01-22] MEDS: PANTOPRAZOLE 40 MG TABLET PO SCH (06:07)
[2021-01-22 07:08] LABS: Basophils % (A) 1 %; Eosinophils % (A) 0 %; HCT 46.2 % (39.0-53.0); HGB 14.9 gm/dL (13.0-17.5); Lymphocytes # (A) 1.3 k/uL (1.0-4.8); Lymphocytes % (A) 17 %; MCH 30.8 pg (25.0-35.0); MCHC 32.2 g/dL (31.0-37.0); MCV 95.8 fL (80.0-100.0); Monocytes # (A) 0.7 k/uL (0-1.0); Monocytes % (A) 9 %; Neutrophils # (A) 5.6 k/uL (1.3-7.7); Neutrophils % (A) 71 %; Platelet Count 201 k/uL (150-450); RBC 4.82 m/uL (4.30-5.90); RDW 14.1 % (11.5-15.5); WBC 7.9 k/uL (3.8-10.6)
[2021-01-22 07:34] LABS: Glucose 127 mg/dL (74-99); Total Protein 6.2 g/dL (6.3-8.2)
[2021-01-22 07:35] LABS: ALT 204 U/L (4-49); AST 82 U/L (17-59); African American GFR (CKD) >90 (>60 ml/min/1.73 sqM); Albumin 3.4 g/dL (3.5-5.0); Alkaline Phosphatase 57 U/L (38-126); Anion Gap 6 mmol/L; Blood Urea Nitrogen 16 mg/dL (9-20); Calcium 8.1 mg/dL (8.4-10.2); Carbon Dioxide 31 mmol/L (22-30); Chloride 99 mmol/L (98-107); Non-African American GFR(CKD) 79 (>60 ml/min/1.73 sqM); Potassium 3.9 mmol/L (3.5-5.1); Sodium 136 mmol/L (137-145); Total Bilirubin 1.1 mg/dL (0.2-1.3)
[2021-01-22] MEDS: FUROSEMIDE 10 MG/ML 4 ML VIAL IV SCH ×3 (08:48→23:18)
[2021-01-22] MEDS: lisinopriL 5 MG TAB PO SCH (08:48)
[2021-01-22] MEDS: APIXABAN 5 MG TAB PO SCH ×2 (09:02→19:58)
[2021-01-22] MEDS: METOPROLOL TARTRATE 50 MG TAB PO SCH ×2 (09:02→21:00)
[2021-01-22] MEDS: POTASSIUM CHLORIDE ER 20 MEQ TAB.ER PO SCH ×2 (09:02→19:58)
--- NOTE | 2021-01-22 09:11 | CONS ---
CONSULTATION Mr. Batista is a 65-year-old male with no prior documented history of cardiac disease who presented with symptoms of progressive dyspnea going on for the last 2 weeks with worsening peripheral edema. He denies any associated chest discomfort. He does not feel any palpitations. On presentation he was noted to be in heart failure with evidence of atrial fibrillation. Patient is unaware of the dysrhythmia and does not have any prior history of cardiac disease. He has no cardiac testing. He has been exposed to COVID through his but has been tested and came back negative. He was vaccinated in the spring. Of note that on presentation his labs showed an elevation of his ferritin as well as C-reactive protein and his liver function test, but his PCR coronavirus was negative. Patient denies any chest pain. No syncope. No PND or orthopnea. His coronary risk factors are negative for smoking, hypertension or hyperlipidemia. He is nondiabetic. His medications at home are none. REVIEW OF SYSTEMS: RESPIRATORY SYSTEM: He had dyspnea on exertion. No recent wheezing or cough. No history of documented obstructive lung disease. GI SYSTEM: No recent GI bleeding. No peptic ulcer disease. SYSTEM: No dysuria or hematuria. NERVOUS SYSTEM: No history of stroke or seizure. PHYSICAL EXAMINATION: He is a 65-year-old male, alert, oriented, obese, in no apparent distress. Blood pressure running in the 120s to 140s with a heart rate in the 120s to 130s. Afebrile. HEAD: Normocephalic. EYES: Sclerae anicteric. NECK: Good carotid upstroke. No bruit. LUNGS: A few crackles at the bases. HEART: Irregularly irregular. S1, S2. No S3. No rub. No significant murmur. ABDOMEN: Soft, obese, nontender. Positive bowel sounds. No organomegaly. EXTREMITIES: Plus 2 edema bilaterally. Chest x-ray is consistent with congestive heart failure. EKG revealed atrial fibrillation with rapid ventricular response and nonspecific ST-T wave changes. His lab data revealed BUN and creatinine of 16 and 1.01, potassium 3.9, hemoglobin 14.9. His AST is 82, ALT 204. His troponin less than 0.012. NT proBNP is 1070. His TSH is 1.7. IMPRESSION: 1. Atrial fibrillation of unknown duration. 2. Evidence of congestive heart failure; unknown systolic function. 3. Progressive dyspnea related to the congestive heart failure. 4. Exposure to COVID. His ferritin and C-reactive protein are elevated, but his PCR is negative and apparently he has been tested before. 5. Obesity. RECOMMENDATIONS: Patient will be started on IV heparin. I will add a beta mel to his regimen. I will initiate anticoagulation at this time, although his CHADS VASC score is zero, pending further testing. An echocardiogram with Doppler will be obtained. Depending on his progress, further recommendations will be made. Thank you for this consult. Will follow with you. MMCHUL / IJN: [id number] /
--- NOTE | 2021-01-22 14:00 | ECHOF ---
Referral Reason:chf MEASUREMENTS -------- HEIGHT: 188.0 cm WEIGHT: 155.6 kg BP: RVIDd: 3.1 cm (< 3.3) IVSd: 1.1 cm (0.6 - 1.1) LVIDd: 4.7 cm (3.9 - 5.3) LVPWd: 1.8 cm (0.6 - 1.1) IVSs: 1.4 cm LVIDs: 4.1 cm LVPWs: 1.7 cm LAESV Index (A-L): 38.44 ml/m Ao Diam: 3.8 cm (2.0 - 3.7) AV Cusp: 2.2 cm (1.5 - 2.6) MV EXCURSION: 17.961 mm (> 18.000) MV EF SLOPE: 131 mm/s (70 - 150) EPSS: 0.7 cm RAP: 5.00 mmHg RVSP: 24.65 mmHg FINDINGS -------- Atrial fibrillation. This was a technically adequate study. The left ventricular size is normal. Left ventricular wall thickness is normal. Overall left vent ricular systolic function is low-normal with, an EF between 50 - 55 %. The right ventricle is normal in size. LA is moderately dilated 34-39 ml/m2 The right atrial size is normal. The aortic valve was not well visualized. There is no evidence of aortic regurgitation. The mitral valve is normal. Mild mitral regurgitation is present. The tricuspid valve appears structurally normal. Mild tricuspid regurgitation present. Right vent ricular systolic pressure is normal at < 35 mmHg. The pulmonic valve was not well visualized. The aortic root is mildy dilated. There is no pericardial effusion. CONCLUSIONS -------- 1. Left ventricular wall thickness is normal. 2. Overall left ventricular systolic function is low-normal with, an EF between 50 - 55 %. 3. LA is moderately dilated 34-39 ml/m2 4. Mild mitral regurgitation is present. 5. Mild tricuspid regurgitation present. 6. The aortic root is mildy dilated. LEATHER CUTTER: Princess Youngblood RDCS
[2021-01-22] MEDS: DILTIAZEM ORAL 30 MG TAB PO SCH ×2 (16:27→19:57)
[2021-01-22 16:31] LABS: Amphetamine Screen,Urine Not Detected (NotDetected); Barbiturate Screen,Urine Not Detected (NotDetected); Benzodiazepines Screen,Urine Not Detected (NotDetected); Cocaine Screen,Urine Not Detected (NotDetected); Methadone Screen, Urine Not Detected (NotDetected); Opiate Screen,Urine Not Detected (NotDetected); Oxycodone Screen, Urine Not Detected (NotDetected); Phencyclidine Screen,Urine Not Detected (NotDetected); Tricyclic Antidepressant,Urine Not Detected (NotDetected); Urn Cannabinoid Scrn Not Detected (NotDetected)
[2021-01-22] MEDS ORDERED: METOPROLOL TARTRATE 50 MG TAB PO STA (18:14)
--- NOTE | 2021-01-22 19:02 | PN ---
PROGRESS NOTE DATE OF SERVICE: 01/22/2021 This 65-year-old gentleman who was admitted with CHF, acute exacerbation, also had a Atrial fibrillation with a fast irregular rate. The patient escorted normal ejection fraction. Acute on chronic diastolic dysfunction was suspected. The 2D echo was personally reviewed by me. Cardiology is following the patient closely. The patient is being closely monitored. Past medical reviewed. REVIEW OF SYSTEMS: CARDIOVASCULAR SYSTEM: No angina. RESPIRATION: As mentioned earlier. GI: As mentioned earlier. : No dysuria. NERVOUS SYSTEM: No numbness, weakness. CURRENT MEDICATIONS: Reviewed. They include Tylenol, Xanax, Eliquis, Cardizem, Lasix, Zestril, Lopressor, Protonix. Doses and other medications are reviewed. PHYSICAL EXAMINATION: Patient alert and oriented x3. Pulse 84, blood pressure 135/84, respirations 16, temperature normal, pulse ox 94% on room air. HEENT: Conjunctivae normal. NECK: No jugular venous distention. CARDIOVASCULAR: S1, S2 muffled. RESPIRATION: Breath sounds diminished at the bases. A few scattered rhonchi. ABDOMEN: Soft, nontender. LEGS: No edema. No swelling. NERVOUS SYSTEM: No focal deficit. LABS: CBC within normal limits. Sodium 136, potassium 3.9, ALT 204. ASSESSMENT: 1. Bilateral leg swelling and shortness of breath, possible congestive heart failure acute exacerbation. Ejection fraction unknown. A. fib with a fast ventricular rate 2. Bilateral pleural effusions of undetermined etiology. 3. Elevated D-dimer with no evidence of pulmonary embolism or deep vein thrombosis. 4. Elevated random glucose. 5. Obesity with body mass index of 42. 6. History of degenerative joint disease. RECOMMENDATIONS AND DISCUSSION: In this 65-year-old gentleman who presented with multiple complex medical issues, we will monitor the patient closely, continue the current medications, continue symptomatic treatment. It seems like the patient has already lost about 3K. We will limit the fluid to 1200 mL per 24 hours and continue to monitor. The patient is on Eliquis at this time. The EKG showed possibly atrial fibrillation with fast ventricular rate. Continue the current medication. Closely follow with Cardiology. Guarded prognosis because of multiple complex medical issues. Further recommendations to follow. Cardiology is considering possible KRISTYN and cardioversion MMODL / IJN: [id number] / [facility]
[2021-01-22 19:40] LABS: Chol/HDL Ratio 3.53 Ratio; LDL Cholesterol,Calculated 102.1 mg/dL (0.0-131.0); VLDL Calculation 13.96 mg/dL (5.00-40.00)
[2021-01-23] MEDS ORDERED: METOPROLOL TARTRATE 50 MG TAB PO STA (06:04)
[2021-01-23] MEDS: PANTOPRAZOLE 40 MG TABLET PO SCH (06:44)
[2021-01-23] MEDS: DILTIAZEM ORAL 60 MG TAB PO SCH ×4 (06:46→21:10)
--- NOTE | 2021-01-23 07:56 | XR ---
EXAMINATION TYPE: XR chest 1V portable DATE OF EXAM: 01/23/2021 COMPARISON: 01/21/2021 HISTORY: CHF TECHNIQUE: Single frontal view of the chest is obtained. FINDINGS: There has been interval decrease in the pulmonary vascular congestion. There is no lung co nsolidative opacity. There is no pneumothorax. There is a small right pleural effusion. Heart size is moderately enlarged. IMPRESSION: Interval improvement in the findings which are consistent with the provided history of C HF.
[2021-01-23 08:32] LABS: Calcium 8.4 mg/dL (8.4-10.2); Potassium 3.9 mmol/L (3.5-5.1)
[2021-01-23] MEDS: APIXABAN 5 MG TAB PO SCH ×2 (09:35→20:13)
[2021-01-23] MEDS: METOPROLOL TARTRATE 50 MG TAB PO SCH ×2 (09:35→20:13)
[2021-01-23] MEDS: lisinopriL 5 MG TAB PO SCH (09:35)
[2021-01-23] MEDS: POTASSIUM CHLORIDE ER 20 MEQ TAB.ER PO SCH ×2 (09:35→20:13)
[2021-01-23] MEDS: FUROSEMIDE 10 MG/ML 4 ML VIAL IV SCH (09:35)
--- NOTE | 2021-01-23 12:15 | PN ---
PROGRESS NOTE Mr. Batista is a 65-year-old male who presented with symptoms of progressive dyspnea and was noted to be in atrial fibrillation with rapid ventricular response. He is feeling much better today. He denies any chest pain. His breathing is better. He denies any dizziness or palpitations. He is unaware of the atrial fibrillation. He continues to have rapid ventricular response in spite of beta mel and calcium channel mel. His echocardiogram revealed ejection fraction 50-55% with mild mitral and tricuspid regurgitation. He continues to be on metoprolol tartrate 50 mg twice a day, diltiazem 60 mg 3 times a day, Lasix 40 mg IV q.8 hours, Eliquis 5 mg twice a day. PHYSICAL EXAMINATION: Blood pressure running in the 100s with a heart rate in the 120s to 130s. Lungs: Clear. Heart irregularly irregular S1, S2. No S3. No rub. Abdomen: Soft, obese, nontender. Extremities with trace to 1+ edema, much improved compared to his admission. IMPRESSION: 1. Atrial fibrillation with rapid ventricular response. 2. Symptoms of congestive heart failure with diastolic dysfunction, improving. 3. Obesity. RECOMMENDATIONS: I will switch him to oral diuretics. I will add to his regimen amiodarone. If he remains in atrial fibrillation with rapid ventricular response, then I would recommend to proceed with KRISTYN-guided cardioversion tomorrow. I have discussed with him those findings, the rationale behind the procedures, risks and complications. He is in full understanding and agreement. MMODL / IJN: [id number] /
[2021-01-23] MEDS: AMIODARONE 200 MG TAB PO SCH ×2 (13:29→20:14)
--- NOTE | 2021-01-23 18:30 | PN ---
PROGRESS NOTE DATE OF SERVICE: 01/23/2021 This 65-year-old gentleman who was admitted with symptoms of CHF had ejection fraction 50-55%. The patient has possibly acute on chronic diastolic dysfunction. The patient has atrial fibrillation also. Cardiology planning a KRISTYN guided cardioversion tomorrow. No chest pain. No palpitations. No fever. PHYSICAL EXAMINATION: Alert and oriented. Pulse 117, blood pressure 140/90, respiration 18, temperature 97 degrees, pulse ox 98% on room air. HEENT: Conjunctivae normal. Oral mucosa moist. NECK: No jugular venous distention. No lymph node enlargement. CARDIOVASCULAR: S1, S2, muffled. No S3, no S4, RESPIRATORY: Diminished breath sounds at the bases. A few scattered rhonchi and crackles. ABDOMEN: Soft, nontender. LEGS: No edema, no swelling. NERVOUS SYSTEM: No focal deficits. LABS: CBC within normal. Sodium 136. ASSESSMENT: 1. Congestive heart failure acute exacerbation with acute on chronic diastolic dysfunction. 2. Atrial fibrillation with fast ventricular rate. 3. Obesity. 4. History of degenerative joint disease. 5. Elevated AST ALT. 6. Elevated random glucose. 7. Hyponatremia. RECOMMENDATION: In this 65-year-old gentleman with multiple complex medical issues, we will monitor the patient closely, continue the current management and symptomatic treatment. Otherwise, follow closely cardiology, KRISTYN, cardioversion. Guarded prognosis. Further recommendations to follow. See orders for details. The patient will be followed by Dr. Barton in the outpatient setting. MMCHUL / IJN: [id number] /
[2021-01-23] MEDS: FUROSEMIDE 20 MG TAB PO SCH (20:13)
[2021-01-24 06:31] LABS: Calcium 8.5 mg/dL (8.4-10.2); Potassium 4.2 mmol/L (3.5-5.1)
[2021-01-24] MEDS: PANTOPRAZOLE 40 MG TABLET PO SCH (06:41)
[2021-01-24] MEDS: lisinopriL 5 MG TAB PO SCH (08:13)
[2021-01-24] MEDS: POTASSIUM CHLORIDE ER 20 MEQ TAB.ER PO SCH ×2 (08:13→20:05)
[2021-01-24] MEDS: AMIODARONE 200 MG TAB PO SCH ×2 (08:13→20:05)
[2021-01-24] MEDS: DILTIAZEM ORAL 60 MG TAB PO SCH (08:13)
[2021-01-24] MEDS: METOPROLOL TARTRATE 50 MG TAB PO SCH ×2 (08:13→20:04)
[2021-01-24] MEDS: APIXABAN 5 MG TAB PO SCH ×2 (08:13→20:05)
[2021-01-24] MEDS: FUROSEMIDE 20 MG TAB PO SCH ×2 (08:13→20:05)
[2021-01-24] MEDS ORDERED: SODIUM CHLORIDE 0.9% 1,000 ML IV ONE ×2 (11:30)
[2021-01-24] MEDS ORDERED: fentaNYL (PF) 50 MCG/ML 2 ML AMP ONE (11:56)
[2021-01-24] MEDS ORDERED: PROPOFOL 10 MG/ML 20 ML VIAL IV ONE (11:56)
[2021-01-24] MEDS ORDERED: KETAMINE 10 MG/ML 20 ML VIAL ONE (11:56)
[2021-01-24] MEDS ORDERED: MIDAZOLAM 2 MG/2 ML VIAL ONE (11:56)
[2021-01-24] MEDS ORDERED: PHENYLEPHRINE-0.9% NACL SYG 1,000 MCG/10 ML SYRINGE ONE (11:56)
--- NOTE | 2021-01-24 15:52 | ECHOT ---
TRANSESOPHAGEAL ECHOCARDIOGRAM TRANSESOPHAGEAL ECHOCARDIOGRAM: INDICATION: Evaluation of left atrial appendage. PROCEDURE DESCRIPTION: After explaining the procedure to the patient, its risks and complications, his blood pressure, heart rate and O2 saturation were monitored. The throat was sprayed with Cetacaine. He received sedation per Anesthesia Department. The probe was introduced in the esophagus without difficulty. Images were obtained. Following that the probe was removed. There was no immediate complication. FINDINGS: Left atrial size is mildly dilated. Left atrial appendage is normal. Left ventricular size and systolic function are normal. The mitral valve revealed thickening of the mitral valve leaflets with no clear prolapse. Aortic and tricuspid valves are normal. Descending thoracic aorta appears to be normal. No pericardial effusion was noted. Contrast bubble study revealed no evidence of shunting across the interatrial septum. Doppler, pulse wave and color Doppler were obtained and revealed moderate mitral regurgitation with multiple jets and mild tricuspid regurgitation. There was no shunting by color Doppler study. CONCLUSION: 1. Normal left ventricular size and systolic function. 2. Dilated left atrium with normal appearance of left atrial appendage. 3. Thickening of the mitral valve leaflets with multiple jets, moderate mitral regurgitation. 4. Mild tricuspid regurgitation. 5. No shunting across the interatrial septum. MMODL / IJN: [id number] /
--- NOTE | 2021-01-24 21:37 | P.PN ---
Subjective Progress Note Date: 01/24/21 01/24/2021 Patient evaluated today sitting up at the bedside, he is pending for a KRISTYN cardioversion today. Currently denies chest pain, palpitations. He is in atrial fibrillation with a rapid rate in the 130s at the time of my assessment. Patient was started on oral amiodarone, eliquis. Labs today show a sodium of 137, potassium 4.2, CO2 32, BUN 27, creatinine 1.20. Glucose in the 130's patient is not a diabetic, will check an A1C. BNP today is 733. Afebrile, blood pressure 128/73. Patient is hoping to discharge home tomorrow. ROS Constitutional: Denied any fatigue denied any fever. Cardio vascular: denied any chest pain, palpitations Gastrointestinal denied any nausea vomiting Pulmonary: Denied any shortness of breath cough Neurologic denied any new focal deficits All inpatient medications were reviewed and appropriate changes in these medications as dictated in the interval history and assessment and plan. PHYSICAL EXAMINATION: GENERAL: The patient is alert and oriented x3, not in any acute distress. Well developed, well nourished. HEENT: Pupils are round and equally reacting to light. EOMI. No scleral icterus. No conjunctival pallor. Normocephalic, atraumatic. No pharyngeal erythema. No thyromegaly. CARDIOVASCULAR: S1 and S2 present. irregularly irregular, tachycardic on asses sment PULMONARY: Chest is clear to auscultation, no wheezing or crackles. ABDOMEN: Soft, nontender, nondistended, normoactive bowel sounds. No palpable organomegaly. MUSCULOSKELETAL: No joint swelling or deformity. EXTREMITIES: No cyanosis, clubbing, or pedal edema. NEUROLOGICAL: Gross neurological examination did not reveal any focal deficits. SKIN: No rashes. Assessment and plan Assessment New onset atrial fibrillation with RVR, cardioverted, now in NSR Chronic congestive heart failure with acute on chronic diastolic dysfunction Obesity Elevated blood glucose Elevated AST/ALT History of degenerative joint disease Hyponatremia, resolved GI Prophylaxis DVT Prophylaxis: Eliquis Plan KRISTYN Cardioversion today Continue all other supportive care Check A1C Possible DC home tomorrow if cleared by cardiology Objective - Vital Signs Vital signs: Vital Signs Temp 97.3 F L 01/24/21 08:14 Pulse 133 H 01/24/21 08:26 Resp 18 01/24/21 08:26 BP 123/78 01/24/21 08:14 Pulse Ox 94 L 01/24/21 08:14 Intake & Output 01/23/21 01/24/21 01/24/21 18:59 06:59 18:59 Intake Total 473 Output Total 650 800 Balance -177 -800 Weight 151.5 kg Intake: Oral 473 Output: Urine 650 800 Other: Voiding Method Toilet Toilet - Labs CBC & Chem 7: 01/22/21 06:19 01/24/21 06:03 Labs: Abnormal Lab Results - Last 24 Hours (Table) 01/24/21 Range/Units 06:03 Carbon Dioxide 32 H (22-30) mmol/L BUN 27 H (9-20) mg/dL Glucose 133 H (74-99) mg/dL
[2021-01-25] MEDS: PANTOPRAZOLE 40 MG TABLET PO SCH (06:10)
[2021-01-25 07:02] LABS: Basophils % (A) 1 %; Eosinophils # (A) 0.1 k/uL (0-0.7); Eosinophils % (A) 1 %; HCT 43.8 % (39.0-53.0); Lymphocytes # (A) 1.6 k/uL (1.0-4.8); Lymphocytes % (A) 21 %; Mean Platelet Volume 8.2; Monocytes # (A) 0.6 k/uL (0-1.0); Monocytes % (A) 8 %; Neutrophils # (A) 5.2 k/uL (1.3-7.7); Neutrophils % (A) 68 %; Platelet Count 193 k/uL (150-450); RBC 4.52 m/uL (4.30-5.90); RDW 13.4 % (11.5-15.5); WBC 7.6 k/uL (3.8-10.6)
[2021-01-25 07:35] LABS: Albumin 3.3 g/dL (3.5-5.0); Calcium 8.2 mg/dL (8.4-10.2); Potassium 4.1 mmol/L (3.5-5.1); Total Bilirubin 0.8 mg/dL (0.2-1.3)
[2021-01-25] MEDS: APIXABAN 5 MG TAB PO SCH (08:10)
[2021-01-25] MEDS: METOPROLOL TARTRATE 50 MG TAB PO SCH (08:10)
[2021-01-25] MEDS: POTASSIUM CHLORIDE ER 20 MEQ TAB.ER PO SCH (08:10)
[2021-01-25] MEDS: lisinopriL 5 MG TAB PO SCH (08:10)
[2021-01-25] MEDS: FUROSEMIDE 20 MG TAB PO SCH (08:10)
[2021-01-25] MEDS: AMIODARONE 200 MG TAB PO SCH (08:10)
[2021-01-25 08:14] VITALS: RESP 16
--- NOTE | 2021-01-25 08:57 | PCN ---
PROCEDURE NOTE CARDIOVERSION PROCEDURE NOTE: INDICATION: Atrial fibrillation. PROCEDURE DESCRIPTION: After explaining the procedure to the patient, its risks and complications, blood pressure, heart rate and O2 saturation were monitored. After performing transesophageal echocardiogram and obtaining sedated state per Anesthesia Department, a synchronized biphasic cardioversion using 200 joules was performed with orthodox of normal sinus rhythm. There was no immediate complication. ERIK / JAC: [id number] / MTDShin
--- NOTE | 2021-01-25 10:14 | P.PN ---
Subjective Progress Note Date: 01/25/21 Patient is a 65-year-old male who presented with symptoms of progressive dyspnea and was found to be new onset atrial fibrillation with rapid ventricular response. Patient was cardioverted by Dr. Carrasquillo yesterday 01/24/2021. He was converted to sinus rhythm. Patient seen at the bedside today doing very well. He denies chest pain, palpitations, dyspnea, dizziness, syncope. He remains in sinus rhythm with a controlled ventricular rate of 70. Blood pressure is well- controlled 112/67, 95% on room air, afebrile. He has moderate pitting lower extremity edema bilaterally. Patient will continue on amiodarone 200 mg twice a day, Eliquis 5 mg twice a day, Lasix 20 mg twice a day, K-Dur 20 twice a day, Lopressor 50 mg twice a day, lisinopril 5 mg daily. Objective - Vital Signs Vital signs: Vital Signs Temp 97.6 F 01/25/21 08:00 Pulse 71 01/25/21 08:00 Resp 16 01/25/21 08:00 BP 112/67 01/25/21 08:00 Pulse Ox 95 01/25/21 08:00 Intake & Output 01/24/21 01/25/21 01/25/21 18:59 06:59 18:59 Intake Total 440 180 Output Total 550 Balance -110 180 Weight 151.9 kg Intake: IV 200 Oral 240 180 Output: Urine 550 Other: Voiding Method Toilet Toilet # Voids 2 - Exam PHYSICAL EXAM: VITAL SIGNS: Reviewed. GENERAL: Well-developed in no acute distress. HEENT: Head is normocephalic. Pupils are equal, round. Sclerae anicteric. Mucous membranes of the mouth are moist. NECK: Supple. No JVD or thyromegaly RESPIRATORY: Respirations even and unlabored. Lungs diminished to auscultation bilaterally. CARDIO: Regular rate and rhythm. S1 and S2 heard. No murmur or gallops. EXTREMITIES: Normal range of motion. No clubbing or cyanosis. Peripheral pulses intact. Moderate pitting bilateral lower extremity edema NEURO: Orientated to person, time, mood is appropriate - Labs CBC & Chem 7: 01/25/21 06:30 01/25/21 06:30 Labs: Abnormal Lab Results - Last 24 Hours (Table) 12/21/21 Range/Units 06:30 BUN 29 H (9-20) mg/dL Glucose 108 H (74-99) mg/dL Calcium 8.2 L (8.4-10.2) mg/dL ALT 123 H (4-49) U/L Total Protein 6.0 L (6.3-8.2) g/dL Albumin 3.3 L (3.5-5.0) g/dL Assessment and Plan Assessment: 1. Atrial fibrillation with rapid ventricular response status post card ioversion 2. Improving diastolic congestive heart failure 3. Localized lower extremity edema Plan: Continue with amiodarone and metoprolol Continue with oral diuretics, Lasix and potassium supplement Continue with Eliquis for anticoagulation Continue current cardiac medications Patient encouraged to continue with activity, encouraged to get up and walk around to monitor heart rate and rhythm Patient is stable for discharge
[2021-01-25 12:18] VITALS: TEMP 97.4
[2021-01-25 12:20] VITALS: BP 120/84; PULSE 69
--- NOTE | 2021-01-26 12:22 | P.DS ---
Providers Date of admission: 01/22/21 07:10 Attending physician: Jennifer Vail Consults: 01/21/21 19:05 Consult Physician Routine Consulting Provider: Mike Medina Consult Reason/Comments: chf Do you want consulting provider notified?: Yes Primary care physician: Anthony Barton Hospital Course: Final Diagnosis New onset atrial fibrillation with RVR, cardioverted, now in NSR Chronic congestive heart failure with acute on chronic diastolic dysfunction Obesity Elevated blood glucose Elevated AST/ALT History of degenerative joint disease Hyponatremia, resolved Discharge disposition Patient is cleared medically for discharge from medical and cardiology services to follow-up in the office. He had successful KRISTYN cardioversion to normal sinus rhythm. Hospital course This is a pleasant 65-year-old male who presented to the ED with reports of abdominal distention, lower extremity edema and dyspnea for the past week or so. Patient also had cough and congestion with the symptoms first started but they're now resolved. Covid PCR is negative. Chest CT on admission shows no evidence for pulmonary embolism, pulmonary venous congestion bilateral pleural effusions and cardiomegaly are concerning for acute exacerbation of congestive heart failure correlate with a BNP, a ascending thoracic aortic ectasia measuring 4.6 cm. Venous Doppler negative for bilateral DVT. Abdomen pelvis CT shows no evidence for acute intraluminal process, nonspecific within the paracolic gutters and maybe a secondary finding of congestive heart failure, chronic diverticulosis, hepatic steatosis. Echocardiogram shows an EF of 50-55% with mild mitral regurgitation and mild tricuspid regurgitation. EKG on admission shows atrial fibrillation with rapid ventricular rate, heart rate 171. There is also nonspecific ST and T-wave abnormality. Patient was evaluated by cardiology services recommended a KRISTYN cardioversion with success patient is now in sinus rhythm. KRISTYN revealed normal left ventricular size and systolic function, dilated left atrium with normal appearance of left atrial appendage, mild tricuspid regurgitation and no shunting across intra-arterial septum. Patient was started on amiodarone 200 mg twice a day, eliquis 5 mg twice a day, Lasix 20 mg twice daily, lisinopril 5 mg daily, Lopressor 50 mg twice a day, potassium supplementation. Labs on admission shows a d-dimer of 2.31, sodium 137, potassium 4.4, glucose 126, ferritin 818, AST 113, ALT 243, LDH 850, CRP 1.5, troponin negative. Urinalysis negative, drug toxicology negative, Covid PCR negative 2, TSH 1.700. Cholesterol panel reveals a total cholesterol level of 162, LDL 102, HDL 45 and triglycerides of 69.8. 01/25/2021 Patient evaluated sitting up in the chair, he is hoping for discharge today. He denies any chest pain, cough or shortness of breath. Lungs are clear to auscultation, S1-S2 regular rate and rhythm auscultated, abdomen soft nontender. Oriented 3, focal neurological exam is negative. He is cleared by cardiology services and medication reconcilation was completed. Discussed eliquis and risk for bleeding symptoms to look out for. Follow up close with PCP and cardiology services. Please see medication reconciliation for list of current medications. Thank you for allowing us to participate in the care of this patient. Patient Condition at Discharge: Stable Plan - Discharge Summary Discharge Rx Participant: No New Discharge Prescriptions: New Amiodarone [Cordarone] 200 mg PO BID #60 tab Apixaban [Eliquis] 5 mg PO BID #60 tab Metoprolol Tartrate [Lopressor] 50 mg PO BID #60 tab Famotidine [Pepcid] 20 mg PO BID #60 tablet Potassium Chloride ER [K-Dur 20] 20 meq PO DAILY #30 tablet Furosemide [Lasix] 20 mg PO BID #60 tab lisinopriL [Zestril] 5 mg PO DAILY #30 tab Discharge Medication List Amiodarone [Cordarone] 200 mg PO BID #60 tab 01/25/21 [Rx] Apixaban [Eliquis] 5 mg PO BID #60 tab 01/25/21 [Rx] Famotidine [Pepcid] 20 mg PO BID #60 tablet 01/25/21 [Rx] Furosemide [Lasix] 20 mg PO BID #60 tab 01/25/21 [Rx] Metoprolol Tartrate [Lopressor] 50 mg PO BID #60 tab 01/25/21 [Rx] Potassium Chloride ER [K-Dur 20] 20 meq PO DAILY #30 tablet 01/25/21 [Rx] lisinopriL [Zestril] 5 mg PO DAILY #30 tab 01/25/21 [Rx] Follow up Appointment(s)/Referral(s): Daniel Carrasquillo MD [STAFF PHYSICIAN] - 2 Weeks (office will call you to schedule appt. ) Anthony Barton MD [Primary Care Provider] - 02/03/21 11:20 am (previously sche duled keep this) Ambulatory/Diagnostic Orders: Basic Metabolic Panel [LAB.AMB] Time Frame: 2 Days, Location: None Selected Patient Instructions/Handouts: A-fib (Atrial Fibrillation) (DC), Cardioversion (DC) Discharge Disposition: HOME SELF-CARE
== END 2021-01-25 13:39 | disposition home or self-care (01) | DRG 308 ==
LOC: EC 12:16 → 3SCARD 18:08 → OBSVTOIN 01-22 07:10
PROVIDERS: ADMIT Hospitalist; ATTEND Hospitalist
PROC: 5A2204Z Restoration of Cardiac Rhythm, Single (ICD-10-PCS; principal; 2021-01-24 08:35)
PROC: B24BZZ4 Ultrasonography of Heart with Aorta, Transesophageal (ICD-10-PCS; principal; 2021-01-24 08:35)
DX: I48.0 Paroxysmal atrial fibrillation (principal); I50.33 Acute on chronic diastolic (congestive) heart failure; E87.1 Hypo-osmolality and hyponatremia; Z68.41 Body mass index [BMI] 40.0-44.9, adult; I77.810 Thoracic aortic ectasia; Z20.822 Contact with and (suspected) exposure to COVID-19; K76.0 Fatty (change of) liver, not elsewhere classified; I08.1 Rheumatic disorders of both mitral and tricuspid valves; E66.9 Obesity, unspecified; R73.9 Hyperglycemia, unspecified; K57.30 Diverticulosis of large intestine without perforation or abscess without bleeding; M19.90 Unspecified osteoarthritis, unspecified site; Z98.890 Other specified postprocedural states; Z87.39 Personal history of other diseases of the musculoskeletal system and connective tissue; Z80.9 Family history of malignant neoplasm, unspecified
CPT/HCPCS: 36415; 71045; 71046; 71275; 74177; 80048; 80053; 80061; 80306; 81003; 82728; 83036; 83605; 83615; 83735; 83880; 84443; 84484; 85025; 85379; 85610; 85652; 85730; 86140; 87635; 92960; 93005; 93306; 93312; 93320; 93325; 93970; 94760; 99285

== ENCOUNTER → 2021-01-27 | Outpatient (CLI) | payer BC ==
[2021-01-27 11:53] LABS: African American GFR (CKD) 92.4 (60.0-200.0); Anion Gap 10.7 mmol/L (10.00-18.00); BUN/Creat Ratio 21.9 Ratio (12.00-20.00); Blood Urea Nitrogen 21.9 mg/dL (9.0-27.0); Calcium 8.8 mg/dL (8.7-10.3); Carbon Dioxide 26.3 mmol/L (20.0-27.5); Non-African American GFR(CKD) 79.7 (60.0-200.0); Potassium 4.8 mmol/L (3.5-5.5)
== END | disposition home or self-care (01) ==
LOC: LABWHC1 07:08
PROVIDERS: ATTEND Nurse Practitioner Family
DX: Z09 Encounter for follow-up examination after completed treatment for conditions other than malignant neoplasm (principal)
CPT/HCPCS: 36415; 80048

== ENCOUNTER → 2023-12-26 | Outpatient (CLI) | payer MEDICARE ==
--- NOTE | 2023-12-26 08:57 | MR ---
EXAMINATION TYPE: MR Prostate wo/w con DATE OF EXAM: 12/26/2023 8:23 AM COMPARISON: None. CLINICAL INDICATION: Male, 68 years old with history of R97.20 Elevated PSA; Elevated PSA. TECHNIQUE: Multi-planar, multi-sequence imaging of the pelvis is performed prior to and following the uncomplicated administration of bolus intravenous gadolinium. IV Contrast: 14 mL Gadobutrol Interpretive Criteria: PI-RADS v2.1 SERUM PSA: 11-08-23 = 5.3 9 = 4.74 SURGICAL PATHOLOGY: No data available. FINDINGS: Prostatic dimensions: 4.5 x 5.9 x 3.8 cm. Ellipsoid Volume:52.83 (PSA density=0.10 ng/mL/mL) CENTRAL GLAND (Central and Transition Zones/CZ+TZ): Multiple bilateral, heterogenous appearing hypertrophic stromal nodules, without suspicious lesion. M edian lobe hypertrophy with protrusion into the base of the bladder. (PI-RADS 2) PERIPHERAL ZONE (PZ): Geographic area of high DWI and low ADC low T2 signal within the peripheral zone extending just left of midline and crossing to the lateral portion on the right. Overall area measures and/or extends up to 35 mm along the capsule. No obvious extracapsular extension definitively visualized. There is dieudonne rial enhancement within this region. (PI-RADS 5) SEMINAL VESICLES (SV): Symmetric and unremarkable. PERIPROSTATIC TISSUES: Unremarkable. LYMPH NODES: No enlarged pelvic lymph node. REMAINING PELVIS: Bladder wall is within normal limits given distention. No abnormal free or organized intrapelvic fluid collection. No pathologic bowel dilation or mural thickening. Colonic diverticula are present. No hernia visualized OSSEOUS STRUCTURES: No suspicious osseous abnormality. IMPRESSION: 1. PI-RADS 5 lesion involving the peripheral zone extending just left of midline and extending to the lateral aspect of the right mid gland. No obvious extracapsular extension at this time. 2. Moderate BPH, estimated gland volume 52.83 mL. 3. No suspicious osseous lesion. No lymphadenopathy. No evidence of prostate adenocarcinoma involving the periprostatic tissues. [facility], , 12/26/2023 8:54 AM
== END | disposition home or self-care (01) ==
LOC: RADMRIMAIN 07:11
PROVIDERS: ATTEND Urology
DX: R97.20 Elevated prostate specific antigen [PSA] (principal); N40.0 Benign prostatic hyperplasia without lower urinary tract symptoms
CPT/HCPCS: 72197; A9585

== ENCOUNTER → 2024-01-14 | Outpatient (CLI) | payer MEDICARE ==
[2024-01-14 14:57] LABS: Blood Urea Nitrogen 19.8 mg/dL (9.0-27.0); Calcium 9.1 mg/dL (8.7-10.3); Carbon Dioxide 25.6 mmol/L (21.6-31.8); Chloride 102 mmol/L (96-109); Glucose 96 mg/dL (70-110); Potassium 4.6 mmol/L (3.5-5.5); Sodium 139 mmol/L (135-145)
[2024-01-14 14:59] LABS: Basophils # (A) 0.05 X 10*3/uL (0.00-0.10); Basophils % (A) 0.7 %; Eosinophils % (A) 1.4 %; HCT 48.8 % (39.6-50.0); Lymphocytes # (A) 1.83 X 10*3/uL (0.90-5.00); MCHC 32.8 g/dL (32.0-37.0); MCV 91.6 FL (80.0-97.0); Mean Platelet Volume 10.7 FL (9.5-12.2); Monocytes # (A) 0.91 X 10*3/uL (0.20-1.00); Monocytes % (A) 12.4 %; NRBC Per 100 WBC 0 X 10*3/uL (0.00-0.01); Neutrophils # (A) 4.41 X 10*3/uL (1.80-7.70); Neutrophils % (A) 60.2 %; Platelet Count 181 X 10*3/uL (140-440); RBC 5.33 X 10*6/uL (4.40-5.60); RDW 13.5 % (11.5-14.5); WBC 7.32 X 10*3/uL (4.50-10.00)
[2024-01-14 15:16] LABS: Appearance,Urine Clear (Clear); Bilirubin,Urine Negative (Negative); Blood,Urine Trace (Negative); Color,Urine Yellow (Yellow); Ketones,Urine Negative (Negative); Nitrite,Urine Negative (Negative); PH, Urine 5.5; Specific Gravity,Urine 1.025 (1.001-1.030); Urobilinogen,Urine 0.2 E.U./DL
[2024-01-14 15:56] LABS: Bacteria,Urine None Seen (None Seen); Calcium Oxalate Crystals,Urine Present (None Seen)
== END | disposition home or self-care (01) ==
LOC: LABWHC1 10:18
PROVIDERS: ATTEND Urology
DX: R97.20 Elevated prostate specific antigen [PSA] (principal)
CPT/HCPCS: 36415; 80048; 81001; 85025; 87086

== ENCOUNTER 2024-01-22 11:15 | Day surgery (SDC) | payer MEDICARE ==
--- NOTE | 2024-01-15 17:00 | P.HPIHPCON ---
History of Present Illness H&P Date: 01/15/24 Chief Complaint: Elevated PSA This is a 68-year-old male with history of elevated PSA of 5.3. Underwent a prostate MRI that showed evidence of a PI-RADS 5 lesion along the bilateral mid gland. discussed with him given this finding I do recommend proceeding with MRI fusion prostate biopsy. Aware of the risk which includes but not limited to bleeding, infection Consent for Procedure: I have explained the operation/procedure to the patient, including the risks, benefits, side effects, alternative therapies (including not receiving the proposed treatment or service), the likelihood of the patient achieving his/her goals, and potential recuperation problems for the procedure/sedation/analgesia, as well as any blood products, if indicated. I also explained to the patient the risks, benefits and side effects of the alternatives, as well as the risks related to not receiving the proposed procedure, care, treatment, or services. Past Medical History Past Medical History: Osteoarthritis (OA) History of Any Multi-Drug Resistant Organisms: None Reported Past Surgical History: Orthopedic Surgery Additional Past Surgical History / Comment(s): right knee surg. Past Anesthesia/Blood Transfusion Reactions: No Reported Reaction Past Psychological History: No Psychological Hx Reported Smoking Status: Never smoker Past Alcohol Use History: None Reported Past Drug Use History: None Reported - Past Family History Father Family Medical History: Cancer Medications and Allergies Home Medications Medication Instructions Recorded Confirmed Type Amiodarone [Cordarone] 200 mg PO BID #60 tab 01/25/21 Rx Apixaban [Eliquis] 5 mg PO BID #60 tab 01/25/21 Rx Famotidine [Pepcid] 20 mg PO BID #60 tablet 01/25/21 Rx Furosemide [Lasix] 20 mg PO BID #60 tab 01/25/21 Rx Metoprolol Tartrate [Lopressor] 50 mg PO BID #60 tab 01/25/21 Rx Potassium Chloride ER [K-Dur 20] 20 meq PO DAILY #30 tablet 01/25/21 Rx lisinopriL [Zestril] 5 mg PO DAILY #30 tab 01/25/21 Rx Allergies Allergy/AdvReac Type Severity Reaction Status Date / Time No Known Allergies Allergy Verified 01/21/21 16:53 Surgical - Exam - General no distress, no pain - Eyes normal ocular movement, no pale - ENT normal nares, normal mucosa - Respiratory normal expansion, normal respiratory effort - Abdomen Abdomen: soft, non tender Assessment and Plan Assessment: OR for MRI fusion biopsy of the prostate
[2024-01-22] MEDS: IV FLUID CONTINUATION 1,000 ML IV ONE (12:23)
[2024-01-22] MEDS ORDERED: MIDAZOLAM 2 MG/2 ML VIAL IV PRN (12:23)
[2024-01-22] MEDS ORDERED: LIDOCAINE 1% (10MG/ML) FOR IV START INTRADERMA PRN (12:23)
[2024-01-22] MEDS ORDERED: HYDROmorphone 0.5 MG/0.5 ML SYRINGE IVP PRN (12:23)
[2024-01-22 12:31] VITALS: RESP 16; TEMP 97.6
[2024-01-22] MEDS: LACTATED RINGERS 1,000 ML IV SCH (12:39)
[2024-01-22] MEDS: ONDANSETRON 4 MG/2 ML VIAL IVP ONE (12:49)
[2024-01-22] MEDS: DEXAMETHASONE SOD PHOSPHATE 4 MG/ML 1 ML VIAL IV ONE (12:49)
[2024-01-22] MEDS: GENTAMICIN 40 MG/ML 2 ML VIAL IM PRN (13:04)
[2024-01-22 13:13] LABS: Glucose,Whole Blood 104 mg/dL (70-110)
[2024-01-22] MEDS ORDERED: PROPOFOL 10 MG/ML 20 ML VIAL IV ONE (14:32)
[2024-01-22] MEDS ORDERED: fentaNYL (PF) 50 MCG/ML 2 ML AMP ONE (14:32)
[2024-01-22] MEDS ORDERED: MIDAZOLAM 2 MG/2 ML VIAL ONE (14:32)
--- NOTE | 2024-01-22 14:57 | P.OP ---
Date of Procedure: 01/22/24 Preoperative Diagnosis: Elevated PSA Postoperative Diagnosis: Same Procedure(s) Performed: MRI fusion biopsy of the prostate Implants: none Anesthesia: MAC Surgeon: Michi Hathaway Estimated Blood Loss (ml): 1 Pathology: other (Prostate biopsies) Condition: stable Disposition: PACU Indications for Procedure: This is a 68-year-old male with history of elevated PSA of 5.3. Underwent a prostate MRI that showed evidence of a PI-RADS 5 lesion along the bilateral mid gland. discussed with him given this finding I do recommend proceeding with MRI fusion prostate biopsy. Aware of the risk which includes but not limited to bleeding, infection Description of Procedure: The patient was taken to the operating room and placed in the left lateral decubitus position. The Loopback transrectal ultrasound probe was placed intrarectally. It was then placed within the stand of the [employer] MRI/TRUS Fusion for Prostate Biopsy system. The prostate was imaged in both the axial and sagittal planes Using the Biopsy gun, 4 biopsies were obtained from the target lesion, there were was one lesions, . The remaining 12 biopsies of the peripheral zone were obtained utilizing a standard template. Once the procedure was completed, the ultrasound probe was removed. The patient tolerated the procedure well was taken to the recovery room stable condition
[2024-01-22 15:21] VITALS: BP 110/69; PULSE 70
== END 2024-01-22 15:34 | disposition home or self-care (01) ==
LOC: OR 11:15
PROVIDERS: ATTEND Urology
DX: C61 Malignant neoplasm of prostate (principal); M19.90 Unspecified osteoarthritis, unspecified site; I48.91 Unspecified atrial fibrillation; G47.33 Obstructive sleep apnea (adult) (pediatric); E11.9 Type 2 diabetes mellitus without complications; Z79.84 Long term (current) use of oral hypoglycemic drugs; Z79.899 Other long term (current) drug therapy; Z79.01 Long term (current) use of anticoagulants
CPT/HCPCS: 55700; 88305; J2250; J1580; J1100; J2405; J3010; J2704

== ENCOUNTER → 2024-02-28 | Outpatient (CLI) | payer MEDICARE ==
--- NOTE | 2024-02-28 14:39 | PE ---
EXAMINATION TYPE: PET CT fusion skull to thigh DATE OF EXAM: 02/28/2024 COMPARISON: Prior prostate MRI December 26, 2023 HISTORY: Prostate cancer TECHNIQUE: Following the intravenous administration of 5.56 mCi of GA68 Illucix PSMA, whole body jane ges are performed from the skull base to the midthigh. Images are reviewed on the computer in the co fabian, axial, and sagittal planes. Reconstructed rotating images are created on independent workstat ion and reviewed on the computer. A localization and attenuation correction CT is performed in conj unction with the PET scan. SCAN: Initial Scan FINDINGS: SKULL BASE AND NECK: Normal glanular uptake. No suspicious abnormal uptake. CHEST, MEDIASTINUM, AND HILAR REGION: No suspicious abnormal radiotracer uptake. ABDOMEN AND PELVIS: Normal renal cortical uptake and bowel uptake. Normal uptake in the bladder. Ther e is diffuse increased uptake throughout the prostate. No definitive abnormal uptake outside the pros loyola bed. OSSEOUS STRUCTURES: No definitive abnormal hypermetabolic uptake. OTHER CT: Mild calcified plaque bilateral carotid bulb level. Cardiomegaly is seen. Coronary artery c alcification is noted. There is exophytic simple appearing thin-walled 6.0 cm cyst anteriorly from th e right kidney. Sigmoid colonic diverticulosis is present. IMPRESSION: Diffuse uptake throughout the prostate likely reflects known neoplasm. No convincing evid ence of abnormal adenopathy or metastatic disease on this study. [facility], , 02/28/2024 2:36 PM
== END | disposition home or self-care (01) ==
LOC: RADPETMAIN 08:05
PROVIDERS: ATTEND Urology
DX: C61 Malignant neoplasm of prostate (principal)
CPT/HCPCS: 78815; A9596

== ENCOUNTER → 2024-05-08 | Outpatient (CLI) | payer MEDICARE ==
[2024-05-08 15:12] LABS: Prostate Specific Antigen 0.12 ng/mL (0.000-4.500); Testosterone <10.00 ng/dL (86.98-780.10)
== END | disposition home or self-care (01) ==
LOC: LABWHC1 10:57
PROVIDERS: ATTEND Radiology Radiation Oncology
DX: C61 Malignant neoplasm of prostate (principal)
CPT/HCPCS: 36415; 84153; 84403